=== PATIENT | female | born 1945 | race Caucasian/White ===

== ENCOUNTER 2016-08-30 13:04 | Emergency (ER) | payer OTHER ==
[2016-08-30 13:11] VITALS: BP 158/64; PULSE 86; RESP 18; TEMP 99.1; O2SAT 94
--- NOTE | 2016-08-30 13:55 | UCPHY ---
H & P Time Seen by Provider: 08/30/16 13:36 Patient Type: Established HPI/ROS: CHIEF COMPLAINT: Cough and fatigue HISTORY OF PRESENT ILLNESS: Patient is a 71-year-old female self reported as normally healthy who presents to the emergency department "feeling awful." She states that she became ill on late Wednesday night. She developed a dry, nonproductive cough. She feels more fatigued than normal. She initially had a headache which is resolved. She had a fever to 101. Her fever is currently subsided. She denies any nausea, vomiting or diarrhea. No abdominal pain. No dysuria or frequency. No back pain. She has not noticed any rash. There are no sick contacts at home. REVIEW OF SYSTEMS: My complete review of systems is negative except as mentioned in the HPI. Past Medical/Surgical History: Denies past medical history Past surgical history: Includes appendectomy Social history: The patient is and here with her . She does not smoke. Smoking Status: Never smoked Physical Exam: 37.3, 158/64, 86, 18, 94% on room air GENERAL: Well-appearing, in no acute distress, alert. HEENT: Eyes normal to inspection, normal pharynx, no signs of dehydration. NECK: No thyromegaly, no lymphadenopathy, supple. RESPIRATORY: Clear to auscultation bilaterally, no rales, rhonchi or wheezing. CVS: Regular rate and rhythm, no rubs, murmurs, or gallops. ABDOMEN: Soft, nontender, nondistended, no organomegaly. BACK: Normal to inspection, no CVA tenderness. SKIN: Normal color, no rash, warm, dry. No pallor. EXTREMITIES: No pedal edema, no calf tenderness, no Homans sign or cords, no joint swelling. NEURO/PSYCH: Alert and oriented, normal mood and affect, normal motor sensory exam. No obvious cranial nerve deficit. Constitutional: Initial Vital Signs Temperature (C) 37.3 C 08/30/16 13:07 Heart Rate 86 08/30/16 13:07 Respiratory Rate 18 08/30/16 13:07 Blood Pressure 158/64 H 08/30/16 13:07 O2 Sat (%) 94 08/30/16 13:07 Allergies/Adverse Reactions: No Known Allergies Allergy (Verified 04/17/16 16:46) Home Medications: Medication Instructions Recorded Fluticasone Nasal [Flonase Nasal 2 sprays NASAL DAILY #1 mdi 04/17/16 [place] (RX)] Pseudoephedrine HCl [Sudafed 12 120 mg PO BID #20 tab 04/17/16 Hour 120mg (*)] Oseltamivir Phosphate [Tamiflu 75 75 mg PO BID 5 Days 08/30/16 mg (*)] Medical Decision Making ED Course/Re-evaluation: In urgent care discussed possible etiologies with the patient. Patient will have a chest x-ray and a flu swab. She consented. Patient's influenza screen was positive for influenza A. Chest x-ray: No focal infiltrate. I discussed the results with the patient. I answered all her questions. She was given a prescription for Tamiflu. She will return with worsening symptoms. She was given warnings prior to leaving. Differential Diagnosis: My differential includes but is not limited to URI, bronchitis, pneumonia, empyema, influenza, electrolyte abnormality, sugar abnormality, dehydration Patient appears well on exam. She has no significant focal findings on her exam. She does not appear septic or toxic. She does not appear dehydrated on exam. She has no history of electrolyte or glucose abnormalities. - Data Points Laboratory Results: 08/30/16 14:05 Influenza Typ A,B (DFA) POSITIVE FOR FLU A H (NEGATIVE) Departure - Departure Disposition: Home, Routine, Self-Care Clinical Impression: Influenza A Condition: Good Instructions: Influenza (ED) Additional Instructions: Return with increasing weakness, fatigue, shortness of breath, chest pain or any other concerns. Referrals: Dee Dee Johnston MD [Medical Doctor] - 5-7 days, if not improved Prescriptions: Oseltamivir Phosphate [Tamiflu 75 mg (*)] 75 mg PO BID 5 Days - PQRS PQRS Measurement: My PQRS negative my PQRS negative my PQRS negative my PQRS negative 134: Depression screening and followup, PRIME MD-PHQ2 (12 years and older) Over the last 2 weeks, how often have you been bothered by any of the following problems? 1. Feeling down, depressed, or hopeless? 2. Little interest or pleasure in doing things? Patient answered no to both 1 and 2 130: Documentation of medications. Reviewed all patient medications, doses, route and frequency. 226: Do you smoke? No.
== END 2016-08-30 15:22 | disposition home or self-care (01) ==
LOC: CED 13:04
DX: J10.1 Influenza due to other identified influenza virus with other respiratory manifestations (principal)
CPT/HCPCS: 71020-PO; 87400-PO; 99214-PO; G0463-PO